=== PATIENT | male | born 1975 | race Hispanic/Latino ===

== ENCOUNTER 2016-11-08 13:45 | Day surgery (SDC) | payer OTHER ==
[~2016-11-08] VITALS: Ht 177.8 cm; Wt 107.0 kg
[~2016-11-08 13:45] MED LIST: 0.9% Sodium Chloride 1,000 ML IV SCH; LOPE2CAP PO; Sodium Chloride LOK Flush 10 mL Syringe IV PRN; TRAM50TA2 PO; fentaNYL-PF 50 mCg/mL 2 mL Inj IVPUSH PRN
[2016-11-08 14:28] VITALS: BP 131/72; PULSE 79; RESP 18; O2SAT 96
--- NOTE | 2016-11-08 15:42 | PCM.ENDEGD ---
EGD Date of Service: November 08, 2016 Physician Dusty Perez MD Pre Procedure Diagnosis: Abdominal pain Post Procedure Dx & Findings: Gastritis Procedure Esophagogastroduodenoscopy PROCEDURE IN DETAIL: After proper sedation, Olympus video endoscope was inserted into patient's mouth and esophagus was successfully intubated. Scope introduced esophagus. Esophagus showed normal shiny whitish mucosa consistent with squamous cell component. Z line was intact at 40 cm from the incisors. Scope further advanced to the stomach. Stomach showed normal appearing rugae folds without any ulcer mass erosion. However the stomach mucosa showed redness and edema consistent with gastritis. Biopsies obtained. Cardia fundus body antrum pylorus were all visualized. Retroflexion was done. Stomach was easily inflated and deflatable using air. Scope further events to the distal duodenum. Duodenum revealed normal villous structures with normal appearing folds without any mass ulcer erosion. Impression Gastritis Recommendation Follow up in GI clinic Presedation Assessment Risks and Benefits Informed consent was obtained from the patient after all risks and benefits including but not limited to drug reaction, infection, pain, bleeding, perforation, as well as alternatives were discussed. Patient monitoring Continuous pulse oximetry, cardiac monitoring, blood pressure monitoring, IV access, and oxygen at 2L per nasal cannula. Periprocedural Fentanyl: Fentanyl 100mcg Incrementally Midazolam: Midazolam 5mg Incrementally Complications There were no periprocedural complications identified. Post Procedure Plan Post Procedure Recommendations 1. Restrict activities today. 2. Resume normal activities in the morning. 3. Resume medications. 4. GERD behavioral modification: - Avoid fatty, acidic, spicy, large meals - Do not lie down after meals - Do not eat or drink anything for at least 2 1/2 hours before going to bed at night - Discontinue tobacco and alcohol - Decrease or avoid caffeine - Avoid chocolate and mints - Decrease weight - Avoid aspirin and non steroidal anti-inflammatory agents (NSAID) such as Aleve, Advil, Mobic, Naproxen, Ibuprofen, etc 5. Add proton pump inhibitor. Take 30 minutes before 1st meal of the day. 6. Patient informed of normal post procedure side effects as bloating, drowsiness, blood streaking in the stool 7. If gastric biopsy reveal H.pylori, continue with appropriate treatment 8. If small bowel biopsy reveals celiac, continue with appropriate treatment 9. Please don't hesitate to call me with any questions Dusty Perez MD November 08, 2016 15:42
[2016-11-08 15:47] VITALS: BP 111/69; PULSE 78; RESP 16; O2SAT 92
[2016-11-08 15:57] VITALS: BP 110/69; PULSE 75; RESP 16; O2SAT 96
--- NOTE | 2016-11-10 16:35 | PATH ---
SURGICAL PATHOLOGY Attending Physician:Dusty Perez M.D. CASE STATUS: Signed Out PATIENT NAME: JAI HERNANDEZ PID: [id number] : 1975 DATE COLLECTED:11/08/2016 00:00 SPECIMEN: Gastric, Biopsy CLINICAL HISTORY: 1. GASTRIC BXS FINAL DIAGNOSIS: Gastric Biopsy: Portions of gastric body-type mucosa with chronic active gastritis. Organisms morphologically consistent with Helicobacter are present by H&E stain. Rare foci of intestinal metaplasia are present. Negative for dysplasia and malignancy. ICD10: K29.7 GROSS DESCRIPTION: The specimen is received in one formalin filled container labeled with the patient's name, sublabeled "gastric" and consists of 2 portions of tissue which aggregate to 0.4 x 0.3 x 0.2 CM. The specimen is entirely submitted in one cassette. 11/09/2016 [facility] ICD-9 CODES: CPT CODES: 1: 55120 Electronically Signed Out Mirian Oakley MD [facility] [address], [place] [address] Technical component performed at [facility], [facility] [address], [place], [address]
== END 2016-11-08 23:59 | disposition home or self-care (01) ==
LOC: END 13:45
PROVIDERS: ATTEND Internal Medicine
DX: K29.50 Unspecified chronic gastritis without bleeding (principal); B96.81 Helicobacter pylori [H. pylori] as the cause of diseases classified elsewhere; K21.9 Gastro-esophageal reflux disease without esophagitis; K59.00 Constipation, unspecified; G89.4 Chronic pain syndrome
CPT/HCPCS: 43239; G0500; J7030

== ENCOUNTER 2016-11-10 11:11 | Day surgery (SDC) | payer OTHER ==
[~2016-11-10] VITALS: Ht 177.8 cm; Wt 109.7 kg
[2016-11-10] VITALS (9 sets, daily range): BP systolic 111–142; BP diastolic 66–86; PULSE 63–98; RESP 14–19; O2SAT 93–99
--- NOTE | 2016-11-10 07:46 | PCM.HPANE ---
Patient Data Surgeon Admitting Provider: Attending Provider:Alex Beebe MD Primary Care Physician:Leander Other Provider:Kennedi New Anesthesia Reason for Visit Right Knee Meniscal Tear Ht/WT & BMI Height (Feet): 5 Height (Inches): 10 Weight (Kilograms): 111.04 Body Mass Index 35.00 Allergies Coded Allergies: ibuprofen (Verified Adverse Reaction, Mild, KIDNEY PROBLEMS, 11/10/16) HAS HAD SURGERY ON ONE KIDNEY, DOES NOT LIKE TO TAKE MEDS THAT ARE HARD ON KIDNEYS Past Anesthesia History Anesthesia History: Denies:: Anesthesia Reactions, Malignant Hyperthermia Diabetes History Hx Diabetes?: No MRSA MRSA: No Medications Reported Medications Polyethylene Glycol 3350 (Miralax)17 Gm Powd.pack17 Gm PO DAILY 11/10/16 Omeprazole 20 Mg Capsule.dr20 Mg PO DAILY Ref 0 11/10/16 Loperamide 2 Mg Capsule2-4 Mg PO Q4H PRN PRN 11/04/16 Discontinued Reported Medications Tramadol 50 Mg Sphsaz91 Mg PO Q6H PRN For Pain Ref 0 11/04/16 Omeprazole 20 Mg Capsule.dr20 Mg PO DAILY Ref 0 11/04/16 Hydrocodone-Acetaminophen 5-325 mg 1 Each Tablet1-2 Tablet PO Q8H PRN For Pain Ref 0 11/04/16 Polyethylene Glycol 3350 (Miralax)17 Gm Powd.pack17 Gm PO DAILY 11/04/16 [None] No Conflict Check 06/15/13 History History of ENT Problems?: No HEENT History: Denies:: Abnormal Airway Cataracts Difficult Intubation Dysphagia Glaucoma Hearing Problem Sinus Problem TMJ Denture Type: None Teeth Condition: Within Normal Limits Hx of Heart Problems?: Yes Cardiovascular History: Positive for:: Chest Pain (OCCASIONAL C.P, RESOLVES SPONTANEOUSLY.) Denies:: Cardiac Surgery Congestive Heart Failure Edema Heart Murmur Hypertension Irregular Heartbeat Pacemaker Thrombophlebitis Hx of Respiratory Problem?: No Respiratory History: Denies:: Asthma COPD Chest Surgery Dyspnea Emphysema Hemoptysis Pneumonia Tuberculosis Use of C-PAP Machine Hx Neurologic Problems?: Yes Neurological History: Denies:: Alzheimer's Disease CVA Dementia Dizziness Headaches Parkinson's Disease Seizures Hx of GI Problems?: Yes Other GI Pertinent History: C/OF CONSTIPATION & GENERALIZED ABD PAIN Hx of Problems?: Yes Genitourinary History: Positive for:: Kidney Stones (HX OF MULT. STONES- PASSED ON OWN) Denies:: Urinary Tract Infection Other Pertinent History: S/P PYELOLITHOTOMY Male Hx: Denies:: Prostate Problems Scrotal Mass Testicular Surgery Skin History: Denies:: History Skin Disorders? Pressure Ulcers Hx Musculoskeletal Problems?: Yes Musculoskeletal History: Positive for:: Back Injury Degenerative Joint Musculoskeletal Trauma (HX FX TIB/FIB RT KNEE MENISCAL TEAR=CURRENT PROBLEM) Osteoarthritis (KNEES) Hx of Psycho/Social Problems?: No Psycho Social History: Denies:: Anxiety Bipolar Disorder Hx Depression Hx Surgeries?: Yes (PYELOLITHOTOMY,LT ACL RECONSTRUCTION) Hx Any Other Health Problems?: Yes Other History: Positive for:: Hospitalization (FREQ ED VISITS FOR FLANK PAIN, BACK PAIN) Denies:: Cancer Thyroid Disease History Blood Transfusions: Denies:: Blood Transfuse Reaction Blood Transfusions Hx Diabetes: No Hx Alcohol Use: No (PT DENIES)Hx Substance Use: No (PT DENIES)Have You Smoked inLast 12 mo: No Stop/Bang S-Snoring: Do You Snore Loudly: No T-Tired: feel tired, fatigued: Yes O-Obsered: Observed not breath: No P-Blood Pressure: treated: No B- Body Mass Index > 35 kg/m2: Yes A- Age over 50: No N- Neck Large Circumference: Yes G- Gender Male: Yes JAN Total Score: 4 JAN Risk Assessment: High Risk, =/>3 Yes JAN Category 4 OutPt Procedure: Yes Risk Assessment Category Category 1A: Patient has history of documented sleep apnea, and HAS NOT received any narcotic, sedative or anesthesia administration during this stay. Category 1B: Patient has history of documented sleep apnea, and HAS received any narcotic , sedative or anesthesia administration during this stay Category 2: Patient has SUSPECTED Obstructive Sleep Apnea, and HAS received any narcotic , sedative or anesthesia administration during this stay. Category 3: Patient has SUSPECTED Obstructive Sleep Apnea and HAS NOT received narcotic, sedative or anesthesia administration during this stay. Category 4: Outpatient in Procedural Areas with known sleep apnea or who screen positive for High Risk via the STOP/BANG questionnaire. Exam Exam General Appearance: Alert, Oriented X3, Cooperative, No Acute Distress HEENT/AIRWAY: MP 2 Lungs: Clear to Auscultation, Normal Air Movement Heart: Exam Unremarkable, Regular Rate/Rhythm, No Murmurs/Rubs/Gallops Plan Impression Patient chart reviewed, patient interviewed and anesthestic plan with risks, benefits, and alternatives discussed, and informed consent obtained. NPO per Anesth. Guidelines: Yes ASA Physical Status: ASA2 Mod Systemic Disease Anesthetic Plan: GA Bene/Risks/Altern/Consents: Yes HP Complete Prior to Induction: Yes Hieu Yost MD November 10, 2016 07:46
[~2016-11-10 11:11] MED LIST changes: -0.9% Sodium Chloride 1,000 ML IV SCH; -Sodium Chloride LOK Flush 10 mL Syringe IV PRN; -fentaNYL-PF 50 mCg/mL 2 mL Inj IVPUSH PRN
[2016-11-10] MEDS ORDERED: fentaNYL-PF 50 mCg/mL 2 mL Inj ONE (11:12)
[2016-11-10] MEDS ORDERED: Ondansetron 2 mg/mL 2 mL Inj ONE (11:12)
[2016-11-10] MEDS ORDERED: Dexamethasone 4 mg/mL Inj ONE (11:12)
[2016-11-10] MEDS ORDERED: Propofol 10,000 mCg/mL 20 mL Inj ONE (11:12)
[2016-11-10] MEDS: Lactated Ringer's 1,000 ML IV SCH ×3 (11:49→14:20)
[2016-11-10] MEDS ORDERED: CeFAZolin Inj 2 gm / 50mL D5W IV ONE (11:49)
[2016-11-10] MEDS ORDERED: OMEP20CA11 PO (11:58)
[2016-11-10] MEDS ORDERED: POLY17PO6 PO (11:58)
[2016-11-10] MEDS: CeFAZolin Inj 2 GM in IV Premix 1 EACH IV ONE ×2 (14:04→14:24)
[2016-11-10] MEDS ORDERED: Dexamethasone 4 mg/mL Inj IVPUSH PRN (14:30)
[2016-11-10] MEDS ORDERED: Phenylephrine 10,000 mCg/mL Inj IVPUSH PRN (14:30)
[2016-11-10] MEDS ORDERED: EPHEDrine Sulfate 50 mg/mL Inj IVPUSH PRN (14:30)
[2016-11-10] MEDS ORDERED: MetoCLOpramide 5 mg/mL 2 mL Inj IVPUSH PRN (14:30)
[2016-11-10] MEDS ORDERED: Ondansetron 2 mg/mL 2 mL Inj IVPUSH PRN (14:30)
[2016-11-10] MEDS ORDERED: Lactated Ringer's 500 ML IV PRN (14:30)
[2016-11-10] MEDS ORDERED: Labetalol 5 mg/mL 4 mL Inj IV PRN (14:30)
[2016-11-10] MEDS ORDERED: Lactated Ringer's 1,000 ML IV SCH (14:30)
[2016-11-10] MEDS ORDERED: Atropine 0.4 mg/mL Inj IVPUSH PRN (14:30)
[2016-11-10] MEDS ORDERED: HYDROmorphone 1 mg/mL Inj IVPUSH PRN (14:30)
[2016-11-10] MEDS ORDERED: Ropivacaine-PF 0.5% 30 mL Inj INFILTRATE ONE (14:48)
[2016-11-10] MEDS ORDERED: HYDROcodone-APAP 5-325 mg Tablet PO PRN (15:15)
--- NOTE | 2016-11-10 15:20 | PCM.ORTHOP ---
Orthopedic Operative Report Date of Service: November 10, 2016 Pre Operative Diagnosis Right knee medial meniscus tear, loose bodies Post Operative Diagnosis Same Procedure Right knee arthroscopy, partial medial meniscectomy, chondroplasty, synovectomy , loose body removal 15X 5mm Surgeon Surgeon: Alex Beebe MD Assistants: None Indication for Procedure Right knee medial meniscus tear with loose bodies Findings Per dictation Details of Procedure INDICATIONS: Allen Gilbert is a 41-year-old male who has had a history of right knee pain. The patient has failed conservative management. X-rays show the tibiofemoral joints to be preserved with minimal DJD. MRI was obtained which reveals mediall meniscus tear with loose bodies. The patient has had persistent symptoms and is now brought to the operating room for arthroscopy. The risks, benefits, and alternatives of surgery were discussed with the patient. The risks included but were not limited to infection, bleeding, damage to vessels and nerves, loss of motion, continued pain, re-tear of the meniscus, deep venous thrombosis, and complications due to anesthesia including nerve injury, myocardial infarction, stroke, , etc. The patient stated understanding of the nature of the surgical procedure and gave written and verbal consent to proceed. PROCEDURE: The patient was brought to the operating room and placed supine on the operating room table. After the administration of general anesthesia the patient was placed in the supine position. Examination of the knee revealed no evident instability with a trace effusion. All prominences were padded with appropriately and neurovascular structures protected. The right knee was confirmed to be the appropriate site following surgical time out. The right lower extremity was examined under anesthesia. Range of motion was 0-135 degrees. There was no varus or valgus or anterior or posterior instability. The right lower extremity was then prepped and draped in the usual fashion. Sterile prep and drape was then undertaken of the knee. The knee joint was injected with 20 ccs of 1% Lidocaine, along with 3 ccs of 1 % lidocaine in the medial and lateral portal sites respectively. A standard anterolateral parapatellar stab wound was created. The knee joint was entered with a blunt- tipped obturator, followed by the 30-degree video arthroscope. An anteromedial portal was established under arthroscopic control. A routine arthroscopic survey was performed. The patellofemoral joint showed grade 2 chondromalacia which was debrided down to stable tissue with a shaver. The medial joint space was then entered. The articular surfaces showed grade 2/ 3 chondromalacia. The shaver was used to debride the 15 x 15 mm lesion along the distal medial femoral condyle to stable base with no bone exposed. A complex posterior horn and body medial meniscal tear was noted with a small flap. The shaver and the cutting instruments were inserted, and a debridement of the meniscus back to healthy tissue was then undertaken. The ACL and PCL were noted to be intact. The lateral joint space was then entered. The articular surfaces were intact with grade 1/2 chondromalacia. There was a degenerative tear to the lateral aspect of the lateral meniscus. A combination of the shaver and cutting instruments were then inserted and a debridement of this tissue down to stable tissue was undertaken. Moderate synovitis was noted anteriorly in the medial and lateral compartment and debrided with a shaver. The knee was irrigated with an additional 2 liters of lactated Ringer's solution. Excess fluid was drained. The portals were closed with 3-0 nylon as well as xeroform. The knee was injected with 20 mL of 0.5% ropivacaine. A dry sterile dressing was applied, followed by an CAS hose, soft roll, and MERCEDEZ bandage. The patient was awakened in the operating room and transported to the recovery room in satisfactory condition. The patient appeared to tolerate the procedure well. At the completion of surgery the patient had soft compartments , palpable pulses, and brisk capillary refill. There were no complications noted. Please keep dressing clean dry and intact. Do not remove dressing until follow- up in clinic. If the dressing become soaked, you may remove the outer gauze and placed Band-Aids on the wounds. You may weight-bear as tolerated and maintain motion of your knee by bending it daily. You will follow up in clinic in 10-14 days for suture removal, and placement of new Steri-Strips. You will follow-up with me in clinic, and we will start physical therapy if needed. You will follow-up with me at 6 weeks postop and 12 weeks postop and will be released after that if improved. Please keep the affected extremity elevated when possible. Please take aspirin as prescribed. You may use ice and/ or heat as needed for comfort. (preferably ice during the first 48-72 hours) Please feel free to call with any further questions, comments, and/or concerns. Grafts, Implants: None, Implants-See Implant Record Complications There were no periprocedural complications identified. Condition Stable Anesthetic Administered: GA Catheters: None (5) Output, Estimated Blood Loss: 5 Blood Admin during surgery: No Surgical Cast or Splint: Other Surgical Specimen Removed: No Specimen sent to Pathology: No copies to: Alex Beebe MD, Christopher L MD November 10, 2016 15:20
[2016-11-10] MEDS: fentaNYL-PF 50 mCg/mL 2 mL Inj IVPUSH PRN ×2 (15:23→15:46)
--- NOTE | 2016-11-10 15:35 | PCM.ANEP1 ---
Post Anesthesia PACU Phase 1 Assessment Vital Signs Vital Signs Date Time Temp Pulse Resp B/P Pulse Ox O2 Delivery O2 Flow Rate FiO2 11/10/16 15:15 66 16 121/82 99 Simple Mask 10 11/10/16 15:10 36.7 68 15 119/74 99 Simple Mask 10 11/10/16 11:35 36 67 16 136/71 96 Room Air Anesthetic Administered: GA Level of Alertness: Awake, talking MONTESINOS's with Equal Strength: Yes Pain: No Nausea or Vomiting: No CV Function & Hydration Stable: No Airway Device: Oxygen Delivery: Simple Mask Lungs: Clear to Auscultation, Normal Air Movement PACU Phase 2 Assessment Complications: No Follow up Care: No Patient Instructions Provided: N/A Hieu Yost MD November 10, 2016 15:35
== END 2016-11-10 23:59 | disposition home or self-care (01) ==
LOC: SAS 11:11
PROVIDERS: ATTEND Orthopaedic Surgery
DX: M23.221 Derangement of posterior horn of medial meniscus due to old tear or injury, right knee (principal); M23.41 Loose body in knee, right knee; M65.861 Other synovitis and tenosynovitis, right lower leg; M22.41 Chondromalacia patellae, right knee; M25.561 Pain in right knee; K21.9 Gastro-esophageal reflux disease without esophagitis; Z87.891 Personal history of nicotine dependence
CPT/HCPCS: 29876; 29881; J0690; J1100; J2250; J2405; J2795; J3010; J7120